=== PATIENT | female | born 1980 | race Caucasian/White ===

== ENCOUNTER → 2018-06-13 | Outpatient (CLI) | payer BC | LOC: FIMAGING 08:12 | PROVIDERS: ATTEND Family Medicine | DX: E04.1 Nontoxic single thyroid nodule (principal); E05.90 Thyrotoxicosis, unspecified without thyrotoxic crisis or storm ==

== ENCOUNTER 2018-07-21 20:22 | Emergency (ER) | payer BC ==
[2018-07-21 20:27] VITALS: BP 152/96
--- NOTE | 2018-07-21 20:40 | EDPHY ---
H & P Stated Complaint: Cat scratch on back 06/29 in [facility], concerned Time Seen by Provider: 07/21/18 20:29 HPI/ROS: CHIEF COMPLAINT: Cat scratch HISTORY OF PRESENT ILLNESS: 37-year-old female presents after a cat scratch. She was in [facility] 3 weeks ago, held a stray cat. The cat scratched patient's upper back. The scratches have healed well. She is now concerned about possible rabies. Tetanus is up-to-date. ROS: No weakness, excessive bleeding, syncopal episode, other injury. - Personal History LMP (Females 10-55): 15-21 Days Ago Current Tetanus Diphtheria and Acellular Pertussis (TDAP): Yes - Medical/Surgical History Hx Asthma: No Hx Chronic Respiratory Disease: No Hx Diabetes: No Hx Cardiac Disease: No Hx Renal Disease: No Hx Cirrhosis: No Hx Alcoholism: No Hx HIV/AIDS: No Hx Splenectomy or Spleen Trauma: No Other PMH: Hypothyroid - Social History Smoking Status: Never smoked - Physical Exam Exam: General Appearance: Alert, pleasant Neck: Normal inspection Respiratory: Lungs are clear to auscultation Cardiovascular: Regular rate and rhythm Back: linear scars right upper back Skin: Warm and dry Constitutional: Initial Vital Signs Temperature (C) 36.8 C 07/21/18 20:23 Heart Rate 86 07/21/18 20:23 Respiratory Rate 19 07/21/18 20:23 Blood Pressure 152/96 H 07/21/18 20:23 O2 Sat (%) 98 07/21/18 20:23 O2 Delivery Mode Room Air Allergies/Adverse Reactions: No Known Allergies Allergy (Unverified 07/21/18 20:23) Home Medications: Medication Instructions Recorded NK [No Known Home Meds] 07/21/18 Medical Decision Making ED Course/Re-evaluation: This pt presents with a concern for rabies after a cat scratch. Pt reassured. No sign of infection. Departure - Departure Disposition: Home, Routine, Self-Care Clinical Impression: Cat scratch Condition: Good Instructions: Additional Information Additional Instructions: The cat scratches have healed well. There is no infection. Rabies is transmitted via a bite (and not by scratches). Referrals: Jo-Ann Sebastian DO [Doctor of Osteopathy] - As per Instructions
== END 2018-07-21 20:46 | disposition home or self-care (01) ==
DX: S30.810A Abrasion of lower back and pelvis, initial encounter (principal); W55.03XA Scratched by cat, initial encounter; Y93.9 Activity, unspecified; Y92.9 Unspecified place or not applicable; Y99.9 Unspecified external cause status